=== PATIENT | female | born 1960 | race Caucasian/White ===

== ENCOUNTER 2018-06-05 05:28 | Day surgery (SDC) | payer BC ==
[~2018-06-05] VITALS: Ht 162.6 cm; Wt 95.3 kg
[~2018-06-05 05:28] MED LIST: ESCITALOPRAM OX10 MG PO; LISINOPRIL5 MG PO; METFORMIN HCL1000 MG PO; PHENTERMINE H37.5 M1 PO
[2018-06-05 09:17] VITALS: BP 131/80
--- NOTE | 2018-06-05 09:58 | EKG ---
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 [employer]: TANIA : 1960 Requested By: Vadim Arceo Order Number: [id number] MD: Emmanuel Briggs Measurements Intervals [place] Rate: 69 P: 45 LA: 178 QRS: -1 QRSD: 96 T: 30 QT: 384 QTc: 412 Interpretive Statements Sinus rhythm Normal tracing No previous ECG available for comparison Electronically Signed On 06-05-2018 9:58:49 CDT by Emmanuel Briggs [email or web address] ��������������������������������������������� <ELECTRONICALLY SIGNED> ���������������������������������������� By: Emmanuel Briggs MD, MERGED WITH [facility] ��������������������������������������������� 06/05/18 0958 0829 8 Emmanuel Briggs MD, FACC /EPI
[2018-06-05] MEDS ORDERED: NORCO 5-325 TA1 EACH PO (10:42)
[2018-06-05 11:11] VITALS: BP 131/80
--- NOTE | 2018-06-08 08:12 | O ---
[facility] [place] [address] OPERATIVE REPORT Name: MARICEL VASQUEZ I Room #: [facility] M.R.#: [id number] Admission: 06/05/18 ������������������ Attend Phys: Vadim Arceo MD Discharge: 06/05/18 ������������������ Date of : 64 Report #: [id number] THIS REPORT FOR: //name// CC: Maricel Arceo DATE OF SERVICE: 06/05/2018 PREOPERATIVE DIAGNOSIS: Right knee medial meniscus tear with medial compartment chondromalacia. POSTOPERATIVE DIAGNOSES: 1. Right knee posterior horn medial meniscus tear. 2. 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 3. Pathologic medial plica. 4. Grade 2 chondromalacia of patella. PROCEDURES: 1. Right knee arthroscopy with partial medial meniscectomy. 2. Chondroplasty of medial femoral condyle. 3. Medial plica excision. SURGEON: Vadim Arceo MD VICE PRESIDENT CLIENT SERVICES: Jessi Patterson PA-C ANESTHESIA: LMA. COMPLICATIONS: None. SPECIMENS: None. TOURNIQUET TIME: 16 minutes. INDICATIONS FOR PROCEDURE: The patient is a 58-year-old female, who had medial-sided right knee pain. She had an MRI scan showing to have a tear of her medial meniscus as well as bone marrow edema in her medial femoral condyle and medial tibial plateau demonstrating chondromalacia. After discussion with her, she elected for right knee arthroscopy with partial medial meniscectomy and debridement as needed. DESCRIPTION OF PROCEDURE: Risks, benefits, alternatives and complications were discussed in detail with the patient including but not limited to risk of anesthesia; risk of damage to nerves, arteries, blood vessels; risk for infection, bleeding; risk for continued knee pain and need for reoperation. [address] [address] OPERATIVE REPORT Name: MARICEL VASQUEZ I Room #: [facility] M.R.#: [id number] Admission: 06/05/18 ������������������ Attend Phys: Vadim Arceo MD Discharge: 06/05/18 ������������������ Date of : 64 Report #: [id number] Informed consent was obtained from the patient. The right knee was appropriately marked in the preoperative holding area. IV Ancef was given for preoperative antibiotics. She was brought to the operating room and placed in the supine position on the operating room table. LMA anesthesia was induced without complication. Tourniquet was placed on the right thigh. Right lower extremity was prepped and draped in normal sterile fashion. Timeout was performed properly identifying the patient and procedure as well as the instrumentation. All in the operating room were in agreement. Right lower extremity was exsanguinated, tourniquet was inflated. Tourniquet time was 16 minutes. Standard anterolateral portal was established with an 11 blade through the skin. Arthroscope was introduced into the patellofemoral compartment. Diagnostic arthroscopy was undertaken. Patellofemoral compartment was visualized and found to have grade 2 chondromalacia of the patella. Medial gutter was visualized and found to have a thickened medial plica. Medial compartment visualized and medial portal was established under arthroscopic visualization. Probe was introduced into the medial compartment. There was noted to be a tear of the posterior horn of the medial meniscus, this was trimmed back with the arthroscopic biter and smoothed back with a shaver. In addition, there were areas of grade 4 chondromalacia of the medial femoral condyle as well as medial tibial plateau. Medial femoral condyle did demonstrate unstable cartilaginous flaps. Chondroplasty of this area was performed. Notch was visualized and found to have an intact anterior cruciate ligament. Lateral compartment was visualized and found to have an intact lateral meniscus. Scope was placed back into the patellofemoral compartment and the medial plica was excised with an oscillating shaver. All fluid was allowed to drain from the knee. Knee was injected with 10 mL of 0.5% Marcaine. Incision was closed with 3-0 nylon. Soft dressing of Adaptic, 4 x 4, Webril, Antwon wrap were applied. The patient tolerated this procedure well and went to the recovery room under the care of anesthesia postoperatively. ��������������������������������������������� <ELECTRONICALLY SIGNED> ���������������������������������������� By: Vadim Arceo MD ��������������������������������������������� 06/08/18 0812 1058 1132 Vadim Arceo MD /nt
== END 2018-06-05 12:20 | disposition home or self-care (01) ==
LOC: OR 05:28 → TBA 05:28 → OR 12:20
DX: S83.241A Other tear of medial meniscus, current injury, right knee, initial encounter (principal); M94.261 Chondromalacia, right knee; M67.51 Plica syndrome, right knee; I10 Essential (primary) hypertension; E11.9 Type 2 diabetes mellitus without complications; Z90.49 Acquired absence of other specified parts of digestive tract; Z98.890 Other specified postprocedural states; Z79.899 Other long term (current) drug therapy; X58.XXXA Exposure to other specified factors, initial encounter; Y93.89 Activity, other specified; Y92.89 Other specified places as the place of occurrence of the external cause; Y99.8 Other external cause status
CPT/HCPCS: 50010; 50101; 50405; 51038; 54170; 56526; 57103; 57180; 62110; 62900; 70005